=== PATIENT | female | born 1985 | race Caucasian/White ===

== ENCOUNTER 2022-02-15 17:35 | Emergency (ER) | payer MEDICAID ==
[~2022-02-15] VITALS: Ht 175.3 cm; Wt 105.0 kg
[2022-02-15] MEDS ORDERED: metoprolol tartrate 50mg tablet PO ONE (18:40)
[2022-02-15 18:56] LABS: BASOPHILS # (AUTO) 0.1 X10'3 (0-0.2); EOSINOPHILS # (AUTO) 0.7 X10'3 (0-0.9); EOSINOPHILS % (AUTO) 5.4 % (0-6); HEMATOCRIT 42.4 % (35.0-45.0); HEMOGLOBIN 14.5 g/dl (12.0-16.0); LYMPHOCYTES # (AUTO) 4.2 X10'3 (1.1-4.8); LYMPHOCYTES % (AUTO) 33.8 % (21-51); MEAN CORPUSCULAR HEMOGLOBIN 33.5 PG (27.0-31.0); MEAN CORPUSCULAR HGB CONC 34.1 g/dL (33.0-36.5); MEAN CORPUSCULAR VOLUME 98.5 FL (78-98); MEAN PLATELET VOLUME 10.1 FL (7.4-10.4); MONOCYTES % (AUTO) 7.7 % (2-12); NEUTROPHILS # (AUTO) 6.5 X10'3 (1.8-7.7); NEUTROPHILS % (AUTO) 52.1 % (42-75); PLATELET COUNT 236 X10'3 (140-440); RED BLOOD COUNT 4.31 X10'6 (4.20-5.60); RED CELL DISTRIBUTION WIDTH 14.1 % (11.5-14.5); WHITE BLOOD COUNT 12.4 X10'3 (4.5-11.0)
[2022-02-15 19:05] LABS: ALANINE AMINOTRANSFERASE 119 U/L (12-78); ALBUMIN 3.8 G/DL (3.4-5.0); ALBUMIN/GLOBULIN RATIO 0.9 (1.1-1.5); ALKALINE PHOSPHATASE 84 IU/L (46-116); ANION GAP 12 (8-16); ASPARTATE AMINO TRANSFERASE 93 U/L (10-37); BILIRUBIN,TOTAL 0.4 MG/DL (0.1-1.0); BLOOD UREA NITROGEN 14 MG/DL (7-18); BUN/CREATININE RATIO 19.7 (6.6-38.0); CALCIUM 8.6 MG/DL (8.5-10.1); CHLORIDE 100 MMOL/L (99-107); CREATININE 0.71 MG/DL (0.40-0.90); GLUCOSE 96 MG/DL (70-104); POTASSIUM 3.4 MMOL/L (3.5-5.1); SODIUM 139 MMOL/L (135-145); TOTAL CARBON DIOXIDE 27.1 MMOL/L (24-32); TOTAL PROTEIN 8.2 G/DL (6.4-8.2); eGFR > 90 ML/MIN
[2022-02-15 19:08] LABS: HCG SERUM QL NEGATIVE
[2022-02-15] MEDS ORDERED: hydrALAZINE 20mg/ml inj. IV ONE (19:35)
[2022-02-15] MEDS ORDERED: labetalol 20mg/4ml (5mg/ml) syringe IV ONE (20:10)
[2022-02-15] MEDS ORDERED: acetaminophen 325mg tablet PO ONE (20:25)
[2022-02-15] MEDS ORDERED: ketorolac trometh. 30mg/ml inj. IV ONE (20:25)
[2022-02-15 21:24] VITALS: BP 165/121
== END 2022-02-15 21:27 | disposition home or self-care (01) ==
LOC: ER 17:35
DX: I10 Essential (primary) hypertension (principal); R51.9 Headache, unspecified
CPT/HCPCS: 36415; 80053; 83880; 84484; 84703; 85025; 93005; 96374; 96375; 99284; J0360; J1885; J3490

== ENCOUNTER 2022-03-02 11:15 | Emergency (ER) | payer MEDICAID ==
[~2022-03-02] VITALS: Ht 177.8 cm; Wt 104.5 kg
--- NOTE | 2022-03-02 16:59 | NUR ---
PATIENT PULLED TO TRIAGE FOR REPEAT VS, PATIENT STATES SHE HAD CP EARLIER WHILE WAITING WITH INCREASED DIZZINESS AND POSSIBLE SYNCOPE. ACS ORDERS WILL BE ENTERED PER PROTOCOL.
[2022-03-02 17:34] LABS: BASOPHILS # (AUTO) 0.1 X10'3 (0-0.2); BASOPHILS % (AUTO) 0.9 % (0-1); EOSINOPHILS # (AUTO) 0.7 X10'3 (0-0.9); EOSINOPHILS % (AUTO) 8.2 % (0-6); HEMATOCRIT 43.1 % (35.0-45.0); HEMOGLOBIN 14.9 g/dl (12.0-16.0); LYMPHOCYTES # (AUTO) 3.3 X10'3 (1.1-4.8); LYMPHOCYTES % (AUTO) 37.2 % (21-51); MEAN CORPUSCULAR HEMOGLOBIN 33.9 PG (27.0-31.0); MEAN CORPUSCULAR HGB CONC 34.6 g/dL (33.0-36.5); MEAN PLATELET VOLUME 10.7 FL (7.4-10.4); MONOCYTES # (AUTO) 0.8 X10'3 (0-0.9); MONOCYTES % (AUTO) 9.2 % (2-12); NEUTROPHILS % (AUTO) 44.5 % (42-75); PLATELET COUNT 207 X10'3 (140-440); RED CELL DISTRIBUTION WIDTH 13.4 % (11.5-14.5)
[2022-03-02 17:59] LABS: ALANINE AMINOTRANSFERASE 155 U/L (12-78); ALBUMIN 3.6 G/DL (3.4-5.0); ALBUMIN/GLOBULIN RATIO 0.8 (1.1-1.5); ALKALINE PHOSPHATASE 72 IU/L (46-116); ANION GAP 12 (8-16); ASPARTATE AMINO TRANSFERASE 115 U/L (10-37); BILIRUBIN,TOTAL 0.4 MG/DL (0.1-1.0); BLOOD UREA NITROGEN 9 MG/DL (7-18); BUN/CREATININE RATIO 12.2 (6.6-38.0); CALCIUM 8.4 MG/DL (8.5-10.1); CHLORIDE 99 MMOL/L (99-107); CREATININE 0.74 MG/DL (0.40-0.90); GLUCOSE 102 MG/DL (70-104); POTASSIUM 3.4 MMOL/L (3.5-5.1); SODIUM 135 MMOL/L (135-145); TOTAL CARBON DIOXIDE 24.5 MMOL/L (24-32); TOTAL PROTEIN 8.3 G/DL (6.4-8.2); eGFR 88 ML/MIN
[2022-03-02 18:32] LABS: ANISOCYTOSIS FEW; LARGE PLATELETS FEW; PLATELET ESTIMATE NORMAL
[2022-03-02] MEDS ORDERED: cloNIDine 0.1 mg tablet PO ONE (20:00)
[2022-03-02] MEDS ORDERED: LOSA50TA64 PO (20:56)
[2022-03-02] MEDS ORDERED: AMLO5TAB PO (20:56)
[2022-03-02 21:12] VITALS: BP 180/116
== END 2022-03-02 21:13 | disposition home or self-care (01) ==
LOC: ER 11:15
DX: I10 Essential (primary) hypertension (principal); R42 Dizziness and giddiness; R07.89 Other chest pain; J45.909 Unspecified asthma, uncomplicated; F17.200 Nicotine dependence, unspecified, uncomplicated; Z88.8 Allergy status to other drugs, medicaments and biological substances; Z79.899 Other long term (current) drug therapy
CPT/HCPCS: 36415; 71045; 80053; 83880; 84484; 85008; 85025; 93005; 99285

== ENCOUNTER 2022-10-27 02:44 | Emergency (ER) | payer MEDICAID ==
[~2022-10-27] VITALS: Ht 175.3 cm; Wt 104.6 kg
[~2022-10-27 02:44] MED LIST: AMLO5TAB PO; LOSA50TA64 PO
[2022-10-27 03:14] VITALS: TEMP 98.5
[2022-10-27 03:43] LABS: URINE HCG NEGATIVE (NEG)
[2022-10-27 03:47] LABS: BILIRUBIN,URINE NEGATIVE (Neg); CLARITY,URINE SLIGHTLY CLOUDY (Clear); COLOR,URINE YELLOW (Yellow); GLUCOSE, URINE NEGATIVE (Neg); KETONES,URINE NEGATIVE (Neg); LEUKOCYTE ESTERASE ,URINE NEGATIVE (Neg); NITRITES, URINE NEGATIVE (Neg); OCCULT BLOOD,URINE NEGATIVE (Neg); PROTEIN,URINE NEGATIVE (Neg); UROBILINOGEN,URINE 0.2 E.U/dL (0.2-1.0)
[2022-10-27 03:48] LABS: UA COLLECTION TYPE CLN CATCH MIDSTREAM
[2022-10-27 03:56] LABS: WBC,URINE 0-4 /HPF (0-4)
[2022-10-27 03:57] LABS: BACTERIA,URINE 2+ /HPF (Neg); MUCUS STRANDS FEW /LPF (Neg); SQUAMOUS EPITHELIAL CELL,UR MANY /LPF (FEW)
[2022-10-27 04:11] LABS: BASOPHILS # (AUTO) 0.2 X10'3 (0-0.2); BASOPHILS % (AUTO) 1.1 % (0-1); EOSINOPHILS # (AUTO) 0.7 X10'3 (0-0.9); EOSINOPHILS % (AUTO) 4.2 % (0-6); HEMATOCRIT 42.8 % (35.0-45.0); HEMOGLOBIN 14.4 g/dl (12.0-16.0); LYMPHOCYTES # (AUTO) 3.3 X10'3 (1.1-4.8); LYMPHOCYTES % (AUTO) 20.9 % (21-51); MEAN CORPUSCULAR HEMOGLOBIN 33.8 PG (27.0-31.0); MEAN CORPUSCULAR HGB CONC 33.8 g/dL (33.0-36.5); MEAN CORPUSCULAR VOLUME 100.2 FL (78-98); MEAN PLATELET VOLUME 10.5 FL (7.4-10.4); MONOCYTES # (AUTO) 1.3 X10'3 (0-0.9); NEUTROPHILS # (AUTO) 10.5 X10'3 (1.8-7.7); NEUTROPHILS % (AUTO) 65.8 % (42-75); PLATELET COUNT 260 X10'3 (140-440); RED BLOOD COUNT 4.27 X10'6 (4.20-5.60); RED CELL DISTRIBUTION WIDTH 13.8 % (11.5-14.5); WHITE BLOOD COUNT 15.9 X10'3 (4.5-11.0)
[2022-10-27 04:12] LABS: ALBUMIN 3.9 G/DL (3.4-5.0); ANION GAP 11 (8-16); BILIRUBIN,TOTAL 0.8 MG/DL (0.1-1.0); BLOOD UREA NITROGEN 20 MG/DL (7-18); BUN/CREATININE RATIO 20.2 (10.0-20.0); CALCIUM 9.7 MG/DL (8.5-10.1); CHLORIDE 97 MMOL/L (99-107); CREATININE 0.99 MG/DL (0.40-0.90); GLUCOSE 109 MG/DL (70-104); POTASSIUM 3.9 MMOL/L (3.5-5.1); SODIUM 134 MMOL/L (135-145); TOTAL CARBON DIOXIDE 26.3 MMOL/L (24-32); TOTAL PROTEIN 8.3 G/DL (6.4-8.2); eCRCL 80 ML/MIN; eGFR 62 ML/MIN
[2022-10-27 04:13] LABS: ALANINE AMINOTRANSFERASE 114 U/L (12-78); ALBUMIN/GLOBULIN RATIO 0.9 (1.1-1.5); ALKALINE PHOSPHATASE 90 IU/L (46-116); ASPARTATE AMINO TRANSFERASE 80 U/L (10-37); LIPASE < 50 U/L (73-393)
[2022-10-27] MEDS ORDERED: ondansetron/PF 4mg/2ml inj IV ONE (05:05)
[2022-10-27] MEDS ORDERED: normal saline 1000ML IV soln IVB ONE (05:05)
[2022-10-27] MEDS ORDERED: morphine 4 MG/ML inj SYRINge IV ONE (05:05)
[2022-10-27] MEDS ORDERED: ketorolac trometh inj. 60 MG/2 ML VIAL IM ONE (07:30)
[2022-10-27 08:12] VITALS: BP 156/112; PULSE 82; RESP 16; O2SAT 98
== END 2022-10-27 08:14 | disposition home or self-care (01) ==
LOC: ER 02:45
DX: R10.11 Right upper quadrant pain (principal); R10.31 Right lower quadrant pain; I10 Essential (primary) hypertension; J45.909 Unspecified asthma, uncomplicated; Z88.8 Allergy status to other drugs, medicaments and biological substances; Z79.899 Other long term (current) drug therapy
CPT/HCPCS: 36415; 74176; 80053; 81001; 81025; 83690; 85025; 96361; 96372; 96374; 96375; 99285; J1885; J2270; J2405; J7030

== ENCOUNTER 2023-01-15 10:28 | Emergency (ER) | payer MEDICAID ==
[~2023-01-15] VITALS: Ht 170.2 cm; Wt 104.5 kg
[2023-01-15] MEDS ORDERED: albuterol 2.5 MG/3 ML nebule CONTNEB PRN (11:25)
[2023-01-15] MEDS ORDERED: benzonatate 100mg capsule PO ONE (11:25)
[2023-01-15] MEDS ORDERED: ipratropium 0.5 MG/2.5ML nebule IH ONE (11:25)
--- NOTE | 2023-01-15 11:36 | NUR ---
TED LOVE PAGED RT FOR RT TX.
--- NOTE | 2023-01-15 11:40 | NUR ---
RN ADMIN RADHA DURAN AT 1140 AND NOT SHOWING ADMIN AT THAT TIME ON THE MAR. SIGNED OFF ON MAR AT 1221.
[2023-01-15 12:29] VITALS: PULSE 86; RESP 14; O2SAT 100
[2023-01-15 12:35] VITALS: TEMP 97.8
--- NOTE | 2023-01-15 12:45 | NUR ---
COVID SPECIMEN SENT TO LAB/PT PLACED IN ISO/CART PLACED OUTSIDE
[2023-01-15] MEDS ORDERED: BENZ-38 PO (13:49)
[2023-01-15 13:56] VITALS: BP 133/96; PULSE 88; RESP 16; O2SAT 98
== END 2023-01-15 13:57 | disposition home or self-care (01) ==
LOC: ER 10:29
DX: J45.901 Unspecified asthma with (acute) exacerbation (principal); Z20.822 Contact with and (suspected) exposure to COVID-19; I10 Essential (primary) hypertension; F17.200 Nicotine dependence, unspecified, uncomplicated; Z88.8 Allergy status to other drugs, medicaments and biological substances; Z79.899 Other long term (current) drug therapy
CPT/HCPCS: 36415; 71045; 87811; 94640; 94644; 94760; 99285; A7015

== ENCOUNTER 2023-06-23 11:33 | Emergency (ER) | payer MEDICAID ==
[~2023-06-23] VITALS: Ht 177.8 cm; Wt 103.8 kg
[2023-06-23 11:34] VITALS: BP 190/121; PULSE 92; RESP 16; TEMP 98; O2SAT 100
== END 2023-06-23 14:28 | disposition home or self-care (01) ==
LOC: ER 11:33
DX: S93.601A Unspecified sprain of right foot, initial encounter (principal); I10 Essential (primary) hypertension; J45.909 Unspecified asthma, uncomplicated; Z88.8 Allergy status to other drugs, medicaments and biological substances; Z79.899 Other long term (current) drug therapy; X50.1XXA Overexertion from prolonged static or awkward postures, initial encounter; Y93.01 Activity, walking, marching and hiking; Y92.89 Other specified places as the place of occurrence of the external cause; Y99.8 Other external cause status
CPT/HCPCS: 73630; 99283; L3260

== ENCOUNTER 2023-08-14 10:58 | Emergency (ER) | payer MEDICAID ==
[~2023-08-14] VITALS: Ht 175.3 cm; Wt 108.5 kg
[2023-08-14 12:01] LABS: BASOPHILS # (AUTO) 0.1 X10'3 (0-0.2); BASOPHILS % (AUTO) 0.5 % (0-1); EOSINOPHILS # (AUTO) 0.3 X10'3 (0-0.9); EOSINOPHILS % (AUTO) 2.5 % (0-6); HEMATOCRIT 38.1 % (35.0-45.0); HEMOGLOBIN 12.9 g/dl (12.0-16.0); LYMPHOCYTES # (AUTO) 4.2 X10'3 (1.1-4.8); LYMPHOCYTES % (AUTO) 32.1 % (21-51); MEAN CORPUSCULAR HEMOGLOBIN 34.2 PG (27.0-31.0); MEAN CORPUSCULAR HGB CONC 33.9 g/dL (33.0-36.5); MEAN CORPUSCULAR VOLUME 100.9 FL (78-98); MEAN PLATELET VOLUME 9.1 FL (7.4-10.4); MONOCYTES # (AUTO) 0.9 X10'3 (0-0.9); MONOCYTES % (AUTO) 6.7 % (2-12); NEUTROPHILS # (AUTO) 7.7 X10'3 (1.8-7.7); NEUTROPHILS % (AUTO) 58.2 % (42-75); PLATELET COUNT 317 X10'3 (140-440); RED BLOOD COUNT 3.78 X10'6 (4.20-5.60); RED CELL DISTRIBUTION WIDTH 15.8 % (11.5-14.5); WHITE BLOOD COUNT 13.2 X10'3 (4.5-11.0)
[2023-08-14 12:19] LABS: ALBUMIN 3.5 G/DL (3.4-5.0); ANION GAP 11 (8-16); BLOOD UREA NITROGEN 13 MG/DL (7-18); CALCIUM 8.2 MG/DL (8.5-10.1); CHLORIDE 103 MMOL/L (99-107); CREATININE 0.81 MG/DL (0.40-0.90); ETHANOL < 10 MG/DL (<10); GLUCOSE 105 MG/DL (70-104); POTASSIUM 3.5 MMOL/L (3.5-5.1); SODIUM 136 MMOL/L (135-145); THYROID STIMULATING HORMONE 2.83 ulU/ml (0.34-4.50); TOTAL CARBON DIOXIDE 21.6 MMOL/L (24-32); eCRCL 96 ML/MIN; eGFR 78 ML/MIN
[2023-08-14 13:29] LABS: URINE HCG NEGATIVE (NEG)
[2023-08-14 13:30] LABS: BILIRUBIN,URINE NEGATIVE (Neg); CLARITY,URINE SLIGHTLY CLOUDY (Clear); COLOR,URINE YELLOW (Yellow); GLUCOSE, URINE NEGATIVE (Neg); KETONES,URINE NEGATIVE (Neg); LEUKOCYTE ESTERASE ,URINE TRACE (Neg); NITRITES, URINE NEGATIVE (Neg); OCCULT BLOOD,URINE NEGATIVE (Neg); PROTEIN,URINE NEGATIVE (Neg); UROBILINOGEN,URINE 0.2 E.U/dL (0.2-1.0)
[2023-08-14 13:51] LABS: UA COLLECTION TYPE CLN CATCH MIDSTREAM
[2023-08-14 13:52] LABS: MUCUS STRANDS FEW /LPF (Neg); SQUAMOUS EPITHELIAL CELL,UR MANY /LPF (FEW)
[2023-08-14 13:53] LABS: BACTERIA,URINE 1+ /HPF (Neg); RBC,URINE NONE SEEN /HPF (0-2)
[2023-08-14] MEDS: diazepam 5mg tablet PO ONE (14:10)
[2023-08-14 14:11] LABS: URINE AMPHETAMINE SCREEN NEGATIVE (Neg); URINE BARBITUATE SCREEN NEGATIVE (Neg); URINE BENZODIAZEPINES SCREEN NEGATIVE (Neg); URINE CANNABINOID SCREEN POSITIVE (Neg); URINE COCAINE SCREEN POSITIVE (Neg); URINE METHADONE SCREEN NEGATIVE (Neg); URINE PHENCYCLIDINE SCREEN NEGATIVE (Neg)
[2023-08-14] MEDS ORDERED: LOSA100T58 PO (15:00)
[2023-08-14] MEDS ORDERED: LUMA42CA PO (15:00)
[2023-08-14] MEDS ORDERED: CHLO25TA10 PO (15:00)
[2023-08-14 17:23] VITALS: BP 159/96; PULSE 85; RESP 16; TEMP 98.5; O2SAT 98
[2023-08-14] MEDS ORDERED: Lumateperone Tosylate (Caplyta) 42 MG CAPSULE PO SCH (21:00)
[2023-08-14] MEDS ORDERED: losartan 50mg tablet PO SCH (21:00)
[2023-08-15] MEDS ORDERED: chlorthalidone 25mg tablet PO SCH (08:00)
== END 2023-08-14 17:25 | disposition home or self-care (01) ==
LOC: ER 10:59
DX: F32.A Depression, unspecified (principal); R45.851 Suicidal ideations; Z20.822 Contact with and (suspected) exposure to COVID-19
CPT/HCPCS: 36415; 80048; 80305; 80320; 81001; 81025; 84443; 85025; 87811; 99284